=== PATIENT | female | born 1990 | race Two or more races ===

== ENCOUNTER 2016-06-27 19:38 | Emergency (ER) | payer MEDICAID, OTHER ==
[~2016-06-27] VITALS: Ht 162.6 cm; Wt 79.4 kg
--- NOTE | 2016-06-27 20:17 | Emergency Room Report ---
History of Present Illness General Chief Complaint: Skin Rash/Abscess Source: Patient Present Illness HPI 26-year-old female presents emergency department complaining of itchy rash to the bilateral upper extremities, medial thighs and abdomen intermittent x4 days. Patient states rash began 4 days ago and was relieved with Benadryl. Patient states that after several hours the itchy rash reappears. Patient denies new lotions, detergents, cleansers. Patient does not recall food allergy other than to chocolate flavor. Patient denies wheezing, shortness of breath, swelling of the lips or tongue, or difficulty breathing. She denies recent ill contacts, recent travel, or recent illness. denies new medications. She denies nausea, vomiting, fevers, chills or . Denies CP, Palpitations, LOC, AMS, dizziness, Changes in Vision, Sensation, paresthesias, or a sudden severe headache. Allergies: Coded Allergies: CHOCOLATE FLAVOR (Verified Allergy, Unknown, 06/27/16) FOOD Patient History Past Medical History: see triage record Past Surgical History: none Pertinent Family History: none Last Menstrual Period: LAST MONTH Now: No Immunizations: UTD Reviewed Nursing Documentation: PMH: Agreed, PSxH: Agreed Nursing Documentation-PMH Past Medical History: No Stated History Review of Systems All Other Systems: negative except mentioned in HPI Physical Exam Vital Signs Date Time Temp Pulse Resp B/P Pulse Ox O2 Delivery O2 Flow Rate FiO2 06/27/16 19:52 98.4 71 18 115/76 98 Room Air Sp02 EP Interpretation: reviewed, normal General Appearance: no apparent distress, alert, GCS 15, non-toxic Head: normocephalic, atraumatic Eyes: bilateral eye PERRL, bilateral eye normal inspection ENT: hearing grossly normal, normal pharynx, no angioedema, normal voice, other - no oral lesions Neck: full range of motion, supple/symm/no masses Respiratory: chest non-tender, lungs clear, normal breath sounds, no respiratory distress, no wheezing, speaking full sentences Cardiovascular #1: regular rate, rhythm, no edema Gastrointestinal: normal bowel sounds, non tender, soft, no guarding, no rebound, other - rash on anterior abdomen. Musculoskeletal: back normal, gait/station normal, normal range of motion, non- tender Neurologic: alert, oriented x3, responsive, motor strength/tone normal, sensory intact, speech normal Psychiatric: judgement/insight normal, memory normal, mood/affect normal Skin: normal color, warm/dry, well hydrated, rash - blanching erythematous, confluent plaques on bilateral UE, and anterior abdomen and medial thighs bilaterally. no evidence of secondary infection, does not appear on palms or soles, no oral lesions. Lymphatic: no adenopathy Medical Decision Making PA Attestation Dr. alegria is my supervising Physician whom patient management has been discussed with. Diagnostic Impression: Primary Impression: Rash and other nonspecific skin eruption Additional Impression: Urticaria ER Course 26-year-old female presents emergency department complaining of itchy rash to the bilateral upper extremities, medial thighs and abdomen intermittent x4 days. Patient states rash began 4 days ago and was relieved with Benadryl. Patient states that after several hours the itchy rash reappears. Patient denies new lotions, detergents, cleansers. Patient does not recall food allergy other than to chocolate flavor. Patient denies wheezing, shortness of breath, swelling of the lips or tongue, or difficulty breathing. She denies recent ill contacts, recent travel, or recent illness. denies new medications. Ddx considered but are not limited to cellulitis, scabies, shingles, varicella, dermatitis, urticaria, eczema, tinea Vital signs: are WNL, pt. is afebrile H&PE are most consistent with allergic urticaria. no evidence of secondary infection, does not appear on palms or soles, no oral lesions. no evidence of airway compromise. ORDERS: none required at this time, the diagnosis is clinical ED INTERVENTIONS: -25mg Benadryl PO DISCHARGE: At this time pt. is stable for d/c to home. Will provide printed patient care instructions, and any necessary prescriptions. Care plan and follow up instructions have been discussed with the patient prior to discharge. Last Vital Signs Date Time Temp Pulse Resp B/P Pulse Ox O2 Delivery O2 Flow Rate FiO2 06/27/16 19:52 98.4 71 18 115/76 98 Room Air Disposition: HOME, SELF-CARE Condition: Stable Scripts Cetirizine Hcl* (ZYRTEC*) 10 Mg Tablet 10 MG ORAL DAILY, #30 TAB 0 Refills Prov: Amanda Riddle P.APraveen 06/27/16 Hydroxyzine HCl (Hydroxyzine HCl) 25 Mg Tablet 25 MG ORAL FOUR TIMES A DAY for 7 Days, #30 TAB Prov: Amanda Riddle 06/27/16 Patient Instructions: Hives, [id number] Additional Instructions: Take medications as directed. Follow up with PCP in 3-5 days , recommend evaluation by freight hustler Return sooner to ED if new symptoms occur, or current symptoms become worse. Do not drink alcohol, drive, or operate heavy machinery while taking Hydroxyzine as this may cause drowsiness. - Please note that this Emergency Department Report was dictated using [employer]oni[employer] tester sorter technology software, occasionally this can lead to erroneous entry secondary to interpretation by the dictation equipment. Amanda Riddle June 27, 2016 20:17
[2016-06-27] MEDS ORDERED: ZYRTEC10 MG ORAL (20:19)
[2016-06-27] MEDS ORDERED: ATARAX25 MG ORAL (20:19)
[2016-06-27 20:36] VITALS: BP 121/77
[2016-06-27 20:39] VITALS: BP 121/77
== END 2016-06-27 20:39 | disposition home or self-care (01) ==
LOC: EMR 20:08
DX: L50.9 Urticaria, unspecified (principal); Z91.018 Allergy to other foods
CPT/HCPCS: 99284